=== PATIENT | male | born 1980 | race African-American/Black ===

== ENCOUNTER 2022-07-02 09:54 | Inpatient (IN) | payer BC ==
[2022-07-02] MEDS ORDERED: guaiFENesin 600 MG TABLET.ER (FP) PO PRN (12:19)
[2022-07-02] MEDS ORDERED: NALOXONE HCL (KLOXXADO) 8 MG SPRAY NS PRN (12:19)
[2022-07-02] MEDS ORDERED: BENZOCAINE/MENTHOL (CHLORASEPTIC ) LOZENGE MM PRN (12:19)
[2022-07-02] MEDS ORDERED: IBUPROFEN 600 MG TABLET (FP) PO PRN (12:19)
[2022-07-02] MEDS ORDERED: NICOTINE 10 MG CARTRIDGE (INHALER) IH PRN (12:19)
[2022-07-02] MEDS ORDERED: MAGNESIUM HYDROX 2400MG/30ML ORAL SUSPENSION 30 ML CUP PO PRN (12:19)
[2022-07-02] MEDS ORDERED: POLYETHYLENE GLYCOL (HEALTHYLAX) 3350 17 GM PACKET PO PRN (12:19)
[2022-07-02] MEDS ORDERED: AMMONIUM LACTATE 12% LOTION 225 GM BOTTLE TP PRN (12:19)
[2022-07-02] MEDS ORDERED: IBUPROFEN 400 MG TABLET (FP) PO PRN (12:19)
[2022-07-02] MEDS ORDERED: MAG HYDROX/AL HYDROX/SIMETH 30 ML UNIT-DOSE CUP PO PRN (12:19)
[2022-07-02] MEDS ORDERED: NICOTINE POLACRILEX 2 MG GUM BUC PRN (12:19)
[2022-07-02] MEDS ORDERED: NALOXONE HCL 0.4 MG/ML VIAL IM PRN (12:19)
[2022-07-02] MEDS ORDERED: LOPERAMIDE HCL 2 MG CAPSULE PO PRN (12:19)
[2022-07-02] MEDS ORDERED: hydrOXYzine PAMOATE 25 MG CAPSULE (FP) PO PRN (12:19)
[2022-07-02] MEDS ORDERED: ACETAMINOPHEN 325 MG TABLET (FP) PO PRN (12:19)
[2022-07-02] MEDS ORDERED: BENZONATATE 200 MG CAPSULE PO PRN (12:19)
[2022-07-02 12:26] VITALS: BMI 24.4
[2022-07-02] MEDS: NICOTINE 21 MG/24 HOURS TOPICAL PATCH TD SCH (13:53)
[2022-07-02] MEDS ORDERED: TUBERCULIN PPD 5 TU/0.1ML VIAL ID ONE (13:54)
[2022-07-02] MEDS: THIAMINE HCL 100 MG TABLET (FP) PO SCH (21:15)
[2022-07-02] MEDS: MELATONIN 5 MG TABLETS PO SCH (21:15)
[2022-07-03] MEDS: NICOTINE 21 MG/24 HOURS TOPICAL PATCH TD SCH (09:41)
[2022-07-03] MEDS: PRENATAL VITAMINS W/ FOLIC ACID TABLET (FP) PO SCH (09:41)
[2022-07-03 11:03] LABS: HEMATOCRIT 41.4 % (35.4-49); MCH 31.4 pg (25.7-33.7); MCHC 33.9 g/dl (32.0-35.9); MEAN CELL VOLUME 92.5 fl (80-96); MEAN PLT VOLUME 8.4 fl (7.5-11.1); PLATELET COUNT 218 10^3/uL (134-434); RBC 4.47 M/mm3 (4.00-5.60); RDW 13.3 % (11.9-15.9); WHITE BLOOD COUNT 7.5 K/mm3 (4.0-10.0)
[2022-07-03 11:03] LABS: PH,URINE 6.5 (5.0-8.0); URINE APPEARANCE CLEAR; URINE BILIRUBIN NEGATIVE (NEGATIVE); URINE COLOR YELLOW; URINE GLUCOSE (UA) NEGATIVE (NEGATIVE); URINE KETONE NEGATIVE (NEGATIVE); URINE LEUK ESTERASE NEGATIVE (NEGATIVE); URINE NITRITE NEGATIVE (NEGATIVE); URINE PROTEIN NEGATIVE (NEGATIVE)
[2022-07-03 11:05] LABS: POTASSIUM 4.4 mmol/L (3.5-5.1)
[2022-07-03 11:16] LABS: BLOOD UREA NITROGEN 18.9 mg/dL (7-18); CALCIUM 9.4 mg/dL (8.5-10.1)
[2022-07-03 11:19] LABS: CREATININE 1.1 mg/dL (0.55-1.3)
[2022-07-03 11:20] LABS: TOT PROT 7.3 g/dl (6.4-8.2)
[2022-07-03 11:35] LABS: SYPHILIS W/ RPR CONF NON-REACTIVE (NONREACTIVE)
[2022-07-03] MEDS: THIAMINE HCL 100 MG TABLET (FP) PO SCH (21:24)
[2022-07-03] MEDS: MELATONIN 5 MG TABLETS PO SCH (21:25)
[2022-07-04] MEDS: NICOTINE 21 MG/24 HOURS TOPICAL PATCH TD SCH (09:40)
[2022-07-04] MEDS: PRENATAL VITAMINS W/ FOLIC ACID TABLET (FP) PO SCH (09:40)
[2022-07-04] MEDS: MELATONIN 5 MG TABLETS PO SCH (21:29)
[2022-07-04] MEDS: THIAMINE HCL 100 MG TABLET (FP) PO SCH (21:29)
[2022-07-05] MEDS: PRENATAL VITAMINS W/ FOLIC ACID TABLET (FP) PO SCH (09:31)
[2022-07-05] MEDS: NICOTINE 21 MG/24 HOURS TOPICAL PATCH TD SCH (09:32)
[2022-07-05] MEDS: NICOTINE 14 MG/24 HOURS TOPICAL PATCH TD SCH (11:00)
[2022-07-05] MEDS: THIAMINE HCL 100 MG TABLET (FP) PO SCH (21:28)
[2022-07-05] MEDS: MELATONIN 5 MG TABLETS PO SCH (21:28)
[2022-07-06] MEDS: PRENATAL VITAMINS W/ FOLIC ACID TABLET (FP) PO SCH (09:43)
[2022-07-06] MEDS: NICOTINE 14 MG/24 HOURS TOPICAL PATCH TD SCH (09:43)
[2022-07-06] MEDS: THIAMINE HCL 100 MG TABLET (FP) PO SCH (21:22)
[2022-07-06] MEDS: MELATONIN 5 MG TABLETS PO SCH (21:23)
[2022-07-07] MEDS: PRENATAL VITAMINS W/ FOLIC ACID TABLET (FP) PO SCH (10:26)
[2022-07-07] MEDS: NICOTINE 14 MG/24 HOURS TOPICAL PATCH TD SCH (10:26)
[2022-07-07] MEDS: ITRACONAZOLE 100 MG CAPSULE PO SCH (16:34)
[2022-07-07] MEDS: THIAMINE HCL 100 MG TABLET (FP) PO SCH (21:19)
[2022-07-07] MEDS: CLOTRIMAZOLE 1% CREAM TP SCH (21:19)
[2022-07-07] MEDS: MELATONIN 5 MG TABLETS PO SCH (21:19)
[2022-07-08] MEDS: NICOTINE 14 MG/24 HOURS TOPICAL PATCH TD SCH (09:22)
[2022-07-08] MEDS: CLOTRIMAZOLE 1% CREAM TP SCH ×2 (09:22→21:26)
[2022-07-08] MEDS: PRENATAL VITAMINS W/ FOLIC ACID TABLET (FP) PO SCH (09:23)
[2022-07-08] MEDS: ITRACONAZOLE 100 MG CAPSULE PO SCH (09:23)
[2022-07-08] MEDS: THIAMINE HCL 100 MG TABLET (FP) PO SCH (21:25)
[2022-07-08] MEDS: MELATONIN 5 MG TABLETS PO SCH (21:25)
[2022-07-09] MEDS: ITRACONAZOLE 100 MG CAPSULE PO SCH (10:00)
[2022-07-09] MEDS: PRENATAL VITAMINS W/ FOLIC ACID TABLET (FP) PO SCH (10:01)
[2022-07-09] MEDS: CLOTRIMAZOLE 1% CREAM TP SCH ×2 (10:01→21:28)
[2022-07-09] MEDS: NICOTINE 14 MG/24 HOURS TOPICAL PATCH TD SCH (10:02)
[2022-07-09] MEDS: MELATONIN 5 MG TABLETS PO SCH (21:28)
[2022-07-09] MEDS: THIAMINE HCL 100 MG TABLET (FP) PO SCH (21:28)
[2022-07-10] MEDS: ITRACONAZOLE 100 MG CAPSULE PO SCH (10:25)
[2022-07-10] MEDS: PRENATAL VITAMINS W/ FOLIC ACID TABLET (FP) PO SCH (10:25)
[2022-07-10] MEDS: CLOTRIMAZOLE 1% CREAM TP SCH ×2 (10:28→21:21)
[2022-07-10] MEDS: NICOTINE 14 MG/24 HOURS TOPICAL PATCH TD SCH (10:28)
[2022-07-10] MEDS: THIAMINE HCL 100 MG TABLET (FP) PO SCH (21:19)
[2022-07-10] MEDS: MELATONIN 5 MG TABLETS PO SCH (21:19)
[2022-07-11] MEDS: ITRACONAZOLE 100 MG CAPSULE PO SCH (10:29)
[2022-07-11] MEDS: PRENATAL VITAMINS W/ FOLIC ACID TABLET (FP) PO SCH (10:29)
[2022-07-11] MEDS: NICOTINE 14 MG/24 HOURS TOPICAL PATCH TD SCH (10:30)
[2022-07-11] MEDS: CLOTRIMAZOLE 1% CREAM TP SCH ×2 (10:31→21:26)
[2022-07-11] MEDS: THIAMINE HCL 100 MG TABLET (FP) PO SCH (21:26)
[2022-07-11] MEDS: MELATONIN 5 MG TABLETS PO SCH (21:27)
[2022-07-12] MEDS: CLOTRIMAZOLE 1% CREAM TP SCH ×2 (10:01→21:38)
[2022-07-12] MEDS: ITRACONAZOLE 100 MG CAPSULE PO SCH (10:02)
[2022-07-12] MEDS: PRENATAL VITAMINS W/ FOLIC ACID TABLET (FP) PO SCH (10:02)
[2022-07-12] MEDS: NICOTINE 14 MG/24 HOURS TOPICAL PATCH TD SCH (10:03)
[2022-07-12] MEDS: MELATONIN 5 MG TABLETS PO SCH (21:38)
[2022-07-12] MEDS: THIAMINE HCL 100 MG TABLET (FP) PO SCH (21:38)
[2022-07-13] MEDS: CLOTRIMAZOLE 1% CREAM TP SCH ×2 (09:38→21:39)
[2022-07-13] MEDS: PRENATAL VITAMINS W/ FOLIC ACID TABLET (FP) PO SCH (09:39)
[2022-07-13] MEDS: ITRACONAZOLE 100 MG CAPSULE PO SCH (09:39)
[2022-07-13] MEDS: NICOTINE 14 MG/24 HOURS TOPICAL PATCH TD SCH (09:40)
[2022-07-13] MEDS: THIAMINE HCL 100 MG TABLET (FP) PO SCH (21:38)
[2022-07-13] MEDS: MELATONIN 5 MG TABLETS PO SCH (21:39)
[2022-07-14] MEDS: PRENATAL VITAMINS W/ FOLIC ACID TABLET (FP) PO SCH (10:25)
[2022-07-14] MEDS: NICOTINE 14 MG/24 HOURS TOPICAL PATCH TD SCH (10:25)
[2022-07-14] MEDS: ITRACONAZOLE 100 MG CAPSULE PO SCH (10:26)
[2022-07-14] MEDS: CLOTRIMAZOLE 1% CREAM TP SCH ×2 (11:04→22:09)
[2022-07-14] MEDS: THIAMINE HCL 100 MG TABLET (FP) PO SCH (21:28)
[2022-07-14] MEDS: MELATONIN 5 MG TABLETS PO SCH (21:29)
[2022-07-15] MEDS: NICOTINE 14 MG/24 HOURS TOPICAL PATCH TD SCH (09:41)
[2022-07-15] MEDS: CLOTRIMAZOLE 1% CREAM TP SCH ×2 (09:41→21:18)
[2022-07-15] MEDS: ITRACONAZOLE 100 MG CAPSULE PO SCH (09:41)
[2022-07-15] MEDS: PRENATAL VITAMINS W/ FOLIC ACID TABLET (FP) PO SCH (09:41)
[2022-07-15] MEDS: MELATONIN 5 MG TABLETS PO SCH (21:17)
[2022-07-15] MEDS: THIAMINE HCL 100 MG TABLET (FP) PO SCH (21:17)
[2022-07-16] MEDS: COLLOIDAL OATMEAL 1 BAR EACH TP PRN (08:18)
[2022-07-16] MEDS: CLOTRIMAZOLE 1% CREAM TP SCH ×2 (09:53→21:18)
[2022-07-16] MEDS: NICOTINE 14 MG/24 HOURS TOPICAL PATCH TD SCH (09:54)
[2022-07-16] MEDS: PRENATAL VITAMINS W/ FOLIC ACID TABLET (FP) PO SCH (09:54)
[2022-07-16] MEDS: ITRACONAZOLE 100 MG CAPSULE PO SCH (09:55)
[2022-07-16] MEDS: THIAMINE HCL 100 MG TABLET (FP) PO SCH (21:17)
[2022-07-16] MEDS: MELATONIN 5 MG TABLETS PO SCH (21:18)
[2022-07-17] MEDS: ITRACONAZOLE 100 MG CAPSULE PO SCH (09:37)
[2022-07-17] MEDS: CLOTRIMAZOLE 1% CREAM TP SCH ×2 (09:37→21:20)
[2022-07-17] MEDS: NICOTINE 14 MG/24 HOURS TOPICAL PATCH TD SCH (09:37)
[2022-07-17] MEDS: PRENATAL VITAMINS W/ FOLIC ACID TABLET (FP) PO SCH (09:37)
[2022-07-17] MEDS: THIAMINE HCL 100 MG TABLET (FP) PO SCH (21:20)
[2022-07-17] MEDS: MELATONIN 5 MG TABLETS PO SCH (21:21)
[2022-07-18] MEDS: PRENATAL VITAMINS W/ FOLIC ACID TABLET (FP) PO SCH (09:56)
[2022-07-18] MEDS: NICOTINE 14 MG/24 HOURS TOPICAL PATCH TD SCH (09:56)
[2022-07-18] MEDS: CLOTRIMAZOLE 1% CREAM TP SCH ×2 (09:57→21:20)
[2022-07-18] MEDS: ITRACONAZOLE 100 MG CAPSULE PO SCH (09:58)
[2022-07-18] MEDS: THIAMINE HCL 100 MG TABLET (FP) PO SCH (21:19)
[2022-07-18] MEDS: MELATONIN 5 MG TABLETS PO SCH (21:20)
[2022-07-19] MEDS: CLOTRIMAZOLE 1% CREAM TP SCH ×2 (09:42→21:11)
[2022-07-19] MEDS: NICOTINE 14 MG/24 HOURS TOPICAL PATCH TD SCH (09:43)
[2022-07-19] MEDS: ITRACONAZOLE 100 MG CAPSULE PO SCH (09:43)
[2022-07-19] MEDS: PRENATAL VITAMINS W/ FOLIC ACID TABLET (FP) PO SCH (09:43)
[2022-07-19 15:42] LABS: HIV INTERPRETATION NEGATIVE (NEGATIVE)
[2022-07-19] MEDS: COLLOIDAL OATMEAL 1 BAR EACH TP PRN (17:31)
[2022-07-19] MEDS: THIAMINE HCL 100 MG TABLET (FP) PO SCH (21:11)
[2022-07-19] MEDS: MELATONIN 5 MG TABLETS PO SCH (21:11)
[2022-07-20] MEDS: PRENATAL VITAMINS W/ FOLIC ACID TABLET (FP) PO SCH (09:20)
[2022-07-20] MEDS: ITRACONAZOLE 100 MG CAPSULE PO SCH (09:20)
[2022-07-20] MEDS: NICOTINE 14 MG/24 HOURS TOPICAL PATCH TD SCH (09:21)
[2022-07-20] MEDS: CLOTRIMAZOLE 1% CREAM TP SCH ×2 (09:21→21:20)
[2022-07-20] MEDS: MELATONIN 5 MG TABLETS PO SCH (21:20)
[2022-07-20] MEDS: THIAMINE HCL 100 MG TABLET (FP) PO SCH (21:20)
[2022-07-21] MEDS: CLOTRIMAZOLE 1% CREAM TP SCH ×2 (10:31→21:31)
[2022-07-21] MEDS: NICOTINE 14 MG/24 HOURS TOPICAL PATCH TD SCH (10:31)
[2022-07-21] MEDS: PRENATAL VITAMINS W/ FOLIC ACID TABLET (FP) PO SCH (10:32)
[2022-07-21] MEDS: ITRACONAZOLE 100 MG CAPSULE PO SCH (10:32)
[2022-07-21] MEDS: THIAMINE HCL 100 MG TABLET (FP) PO SCH (21:30)
[2022-07-21] MEDS: MELATONIN 5 MG TABLETS PO SCH (21:31)
[2022-07-22] MEDS: PRENATAL VITAMINS W/ FOLIC ACID TABLET (FP) PO SCH (09:24)
[2022-07-22] MEDS: ITRACONAZOLE 100 MG CAPSULE PO SCH (09:25)
[2022-07-22] MEDS: CLOTRIMAZOLE 1% CREAM TP SCH ×2 (09:25→22:20)
[2022-07-22] MEDS: THIAMINE HCL 100 MG TABLET (FP) PO SCH (21:24)
[2022-07-22] MEDS: MELATONIN 5 MG TABLETS PO SCH (21:24)
[2022-07-23] MEDS: PRENATAL VITAMINS W/ FOLIC ACID TABLET (FP) PO SCH (10:06)
[2022-07-23] MEDS: CLOTRIMAZOLE 1% CREAM TP SCH ×2 (10:07→21:17)
[2022-07-23] MEDS: ITRACONAZOLE 100 MG CAPSULE PO SCH (10:07)
[2022-07-23] MEDS: THIAMINE HCL 100 MG TABLET (FP) PO SCH (21:17)
[2022-07-23] MEDS: MELATONIN 5 MG TABLETS PO SCH (21:17)
[2022-07-24] MEDS: PRENATAL VITAMINS W/ FOLIC ACID TABLET (FP) PO SCH (09:30)
[2022-07-24] MEDS: ITRACONAZOLE 100 MG CAPSULE PO SCH (09:30)
[2022-07-24] MEDS: COLLOIDAL OATMEAL 1 BAR EACH TP PRN (09:31)
[2022-07-24] MEDS: CLOTRIMAZOLE 1% CREAM TP SCH ×2 (11:00→21:21)
[2022-07-24] MEDS: MELATONIN 5 MG TABLETS PO SCH (21:21)
[2022-07-24] MEDS: THIAMINE HCL 100 MG TABLET (FP) PO SCH (21:21)
[2022-07-25] MEDS: ITRACONAZOLE 100 MG CAPSULE PO SCH (09:57)
[2022-07-25] MEDS: PRENATAL VITAMINS W/ FOLIC ACID TABLET (FP) PO SCH (09:57)
[2022-07-25] MEDS: CLOTRIMAZOLE 1% CREAM TP SCH ×2 (09:57→21:12)
[2022-07-25] MEDS: THIAMINE HCL 100 MG TABLET (FP) PO SCH (21:11)
[2022-07-25] MEDS: MELATONIN 5 MG TABLETS PO SCH (21:12)
[2022-07-26] MEDS: CLOTRIMAZOLE 1% CREAM TP SCH ×2 (09:34→21:50)
[2022-07-26] MEDS: ITRACONAZOLE 100 MG CAPSULE PO SCH (09:34)
[2022-07-26] MEDS: PRENATAL VITAMINS W/ FOLIC ACID TABLET (FP) PO SCH (09:34)
[2022-07-26] MEDS: THIAMINE HCL 100 MG TABLET (FP) PO SCH (21:30)
[2022-07-26] MEDS: MELATONIN 5 MG TABLETS PO SCH (21:30)
[2022-07-27] MEDS: ITRACONAZOLE 100 MG CAPSULE PO SCH (09:35)
[2022-07-27] MEDS: PRENATAL VITAMINS W/ FOLIC ACID TABLET (FP) PO SCH (09:35)
[2022-07-27] MEDS: CLOTRIMAZOLE 1% CREAM TP SCH ×2 (09:50→21:30)
[2022-07-27] MEDS: THIAMINE HCL 100 MG TABLET (FP) PO SCH (21:29)
[2022-07-27] MEDS: MELATONIN 5 MG TABLETS PO SCH (21:31)
[2022-07-28] MEDS: PRENATAL VITAMINS W/ FOLIC ACID TABLET (FP) PO SCH (10:12)
[2022-07-28] MEDS: CLOTRIMAZOLE 1% CREAM TP SCH ×2 (10:13→21:16)
[2022-07-28] MEDS: ITRACONAZOLE 100 MG CAPSULE PO SCH (10:13)
[2022-07-28] MEDS: THIAMINE HCL 100 MG TABLET (FP) PO SCH (21:16)
[2022-07-28] MEDS: MELATONIN 5 MG TABLETS PO SCH (21:17)
[2022-07-29 06:45] VITALS: BP 137/81; PULSE 73; RESP 20; TEMP 98
[2022-07-29] MEDS: PRENATAL VITAMINS W/ FOLIC ACID TABLET (FP) PO SCH (09:02)
[2022-07-29] MEDS: CLOTRIMAZOLE 1% CREAM TP SCH (09:02)
[2022-07-29] MEDS: ITRACONAZOLE 100 MG CAPSULE PO SCH (09:02)
== END 2022-07-29 09:06 | disposition home or self-care (01) | DRG 772 ==
LOC: YASAS 09:54 → Y3E 11:56
PROVIDERS: ADMIT Allergy & Immunology; ATTEND Psychiatry & Neurology Pain Medicine
PROC: HZ42ZZZ Group Counseling for Substance Abuse Treatment, Cognitive-Behavioral (ICD-10-PCS; principal; 2022-07-02)
DX: F10.20 Alcohol dependence, uncomplicated (principal); F17.210 Nicotine dependence, cigarettes, uncomplicated; J45.909 Unspecified asthma, uncomplicated; B35.3 Tinea pedis; B35.1 Tinea unguium
CPT/HCPCS: 36415; 80053; 81003; 85027; 86780; 86803; 87389; 87491; 87591; 87661; 87811; C9803-CS; U0003; U0005

== ENCOUNTER 2023-10-16 09:44 | Emergency (ER) | payer SELFPAY ==
[2023-10-16 10:06] VITALS: BP 112/79; PULSE 97; RESP 16; TEMP 98.5; BMI 25.6
[2023-10-16] MEDS ORDERED: KETOROLAC TROMETHAMINE 30 MG/1 ML VIAL ONE (11:20)
[2023-10-16 11:21] LABS: URINE APPEARANCE CLEAR; URINE BILIRUBIN NEGATIVE (NEGATIVE); URINE COLOR YELLOW; URINE GLUCOSE (UA) NEGATIVE (NEGATIVE); URINE KETONE NEGATIVE (NEGATIVE); URINE LEUK ESTERASE NEGATIVE (NEGATIVE); URINE NITRITE NEGATIVE (NEGATIVE); URINE PROTEIN NEGATIVE (NEGATIVE)
[2023-10-16] MEDS: KETOROLAC TROMETHAMINE 30 MG/1 ML VIAL IM ONE (11:29)
[2023-10-16 14:30] LABS: HIV INTERPRETATION NEGATIVE (NEGATIVE)
== END 2023-10-16 13:24 | disposition home or self-care (01) ==
LOC: JERFT 09:44
PROC: 3E0233Z Introduction of Anti-inflammatory into Muscle, Percutaneous Approach (ICD-10-PCS; principal; 2023-10-16)
DX: M54.50 Low back pain, unspecified (principal)
CPT/HCPCS: 36415; 81003; 86803; 87389; 99284-25